=== PATIENT | male | born 1950 | race Two or more races ===

== ENCOUNTER 2017-06-28 19:07 | Inpatient (IN) | payer OTHER, MEDICAID ==
[~2017-06-28] VITALS: Ht 172.7 cm; Wt 64.0 kg
[2017-06-28 20:43] LABS: Basophils # (auto) 0 uL; Basophils % (auto) 0.3 % (0.0-2.0); Eosinophils # (auto) 0 uL; Eosinophils % (auto) 0.1 % (0.0-7.0); Hematocrit 43.4 % (41.0-53.0); Hemoglobin 14.2 g/dL (13.5-17.5); Lymphocytes # (auto) 0.7 uL; Lymphocytes % (auto) 5.4 % (10.0-50.0); Mean Corpuscular Hemoglobin 30.6 pg (28.0-32.0); Mean Corpuscular Hgb Conc. 32.9 g/dL (32.0-36.0); Monocytes # (auto) 0.2 uL; Monocytes % (auto) 1.6 % (0.0-12.0); Neutrophils # (auto) 12.2 uL; Neutrophils % (auto) 92.6 % (37.0-80.0); Nucleated Red Blood Cells % 0.1 %; Platelet Count (auto) 294 10^3/uL (140-450); Red Blood Cells 4.66 10^6/uL (4.5-5.90); Red Cell Distribution Width 13.7 % (11.8-14.3); White Blood Cell 13.2 10^3/uL (4.4-10.8)
[2017-06-28 20:54] LABS: Alanine Aminotransferase 46 U/L (16-61); Anion Gap 10 (5-15); Aspartate Aminotransferase 20 U/L (15-37); BUN/Creatinine Ratio 24.4; Blood Urea Nitrogen 21 mg/dL (7-18); Calcium 8.4 mg/dL (8.5-10.1); Carbon Dioxide 23 mmol/L (21-32); Chloride 106 mmol/L (98-107); GFR African American 114 mL/min; GFR Non-African American 94 mL/min; Glucose 145 mg/dL (74-106); Magnesium 2.1 mg/dL (1.6-2.6); Sodium 139 mmol/L (136-145)
[2017-06-28 20:59] LABS: Alkaline Phosphatase 85 U/L (45-117); Bilirubin, Total 0.2 mg/dL (0.2-1.0)
[2017-06-28 21:26] LABS: Urine WBC None Seen /hpf (0 - 3)
[2017-06-28 21:35] LABS: Urine Bacteria NONE SEEN /hpf (None Seen); Urine Blood Negative /uL (Negative); Urine Mucus FEW (None Seen); Urine Specific Gravity 1.024 (1.001-1.035); Urine Sperm PRESENT /hpf (None Seen)
[2017-06-28] MEDS ORDERED: FUROSEMIDE 20 MG/2 ML VIAL IV ONE (23:00)
[2017-06-28 23:51] LABS: INR 0.88 (0.9-1.15); Prothrombin Time 9.6 sec (9.37-12.3)
[2017-06-29] MEDS ORDERED: MORPHINE SULFATE 4 MG/ML SYR/VIAL IV PRN (04:00)
[2017-06-29] MEDS ORDERED: METOPROLOL TARTRATE 25 MG TAB PO ONE (04:00)
[2017-06-29] MEDS ORDERED: HYDROcodone-ACET 5/325MG TAB PO PRN (04:00)
[2017-06-29] MEDS ORDERED: TEMAZEPAM 15 MG CAP PO PRN (04:00)
[2017-06-29] MEDS ORDERED: ACETAMINOPHEN 325 MG TAB PO PRN (04:00)
[2017-06-29] MEDS ORDERED: cloNIDine HCL 0.1 MG TAB PO PRN (04:00)
[2017-06-29] MEDS ORDERED: NITROGLYCERIN 0.4 MG SL TAB SL PRN (04:00)
[2017-06-29] MEDS ORDERED: ONDANSETRON HCL 4 MG/2 ML VIAL IV PRN (04:00)
[2017-06-29] MEDS: METOPROLOL TARTRATE 25 MG TAB PO SCH ×2 (09:42→22:11)
[2017-06-29] MEDS: GABAPENTIN 100 MG CAP PO SCH ×2 (09:44→22:12)
[2017-06-29] MEDS: ENOXAPARIN SOD 40 MG/0.4 ML SYRINGE SC SCH (09:44)
[2017-06-29] MEDS: FAMOTIDINE 20 MG TAB PO SCH ×2 (09:44→22:11)
[2017-06-29 17:04] VITALS: BP 112/60
[2017-06-29 20:00] VITALS: BP 119/66
[2017-06-29 22:00] VITALS: BP 119/66
[2017-06-30 05:00] VITALS: BP 120/72
[2017-06-30 05:49] LABS: Basophils # (auto) 0.1 uL; Basophils % (auto) 0.8 % (0.0-2.0); Eosinophils # (auto) 0.1 uL; Eosinophils % (auto) 1.4 % (0.0-7.0); Hematocrit 45.2 % (41.0-53.0); Hemoglobin 15.1 g/dL (13.5-17.5); Lymphocytes # (auto) 3.5 uL; Lymphocytes % (auto) 34.6 % (10.0-50.0); Mean Corpuscular Hemoglobin 31.3 pg (28.0-32.0); Mean Corpuscular Hgb Conc. 33.4 g/dL (32.0-36.0); Mean Corpuscular Volume 93.7 fL (80.0-100.0); Monocytes # (auto) 0.5 uL; Monocytes % (auto) 5.3 % (0.0-12.0); Neutrophils # (auto) 5.9 uL; Neutrophils % (auto) 57.9 % (37.0-80.0); Platelet Count (auto) 267 10^3/uL (140-450); Red Blood Cells 4.82 10^6/uL (4.5-5.90); Red Cell Distribution Width 13.6 % (11.8-14.3); White Blood Cell 10.1 10^3/uL (4.4-10.8)
[2017-06-30 06:14] LABS: Albumin 2.9 g/dL (3.4-5.0); BUN/Creatinine Ratio 22.7; Bilirubin, Total 0.4 mg/dL (0.2-1.0); Calcium 8.7 mg/dL (8.5-10.1); Potassium 4.4 mmol/L (3.5-5.1); Total Protein 6.6 g/dL (6.4-8.2)
[2017-06-30 09:00] VITALS: BP 90/59
[2017-06-30] MEDS: METOPROLOL TARTRATE 25 MG TAB PO SCH (10:38)
[2017-06-30] MEDS: ENOXAPARIN SOD 40 MG/0.4 ML SYRINGE SC SCH (10:38)
[2017-06-30] MEDS: GABAPENTIN 100 MG CAP PO SCH (10:39)
[2017-06-30] MEDS: FAMOTIDINE 20 MG TAB PO SCH (10:39)
[2017-06-30] MEDS ORDERED: CLINDAMYCIN HCL 150 MG CAP PO SCH (11:05)
[2017-06-30 11:56] LABS: Folate (Folic Acid) 16.44 ng/mL (5.38-24)
[2017-06-30] MEDS ORDERED: NYSTATIN TOPICAL CREAM 15GM TOP SCH (12:00)
[2017-06-30 13:00] VITALS: BP 124/73
[2017-06-30 15:00] LABS: Alcohol, Urine < 3.0 mg/dL (0-5); Amphetamine Screen, Urine POSITIVE (NEGATIVE); Barbiturate Scree,Urine NEGATIVE (NEGATIVE); Benzodiazephine Screen, Urine NEGATIVE (NEGATIVE); Cannabinoid Screen, Urine POSITIVE (NEGATIVE); Cocaine Screen, Urine NEGATIVE (NEGATIVE); Opiate Scree,Urine NEGATIVE (NEGATIVE); Phencyclidine Screen, Urine NEGATIVE (NEGATIVE)
[2017-06-30] MEDS ORDERED: ASPirin-EC 81 mg tab PO ONE (16:00)
[2017-06-30] MEDS ORDERED: ASP81EC PO (16:02)
[2017-06-30] MEDS ORDERED: NYS15TP TOP (16:02)
[2017-06-30] MEDS ORDERED: CLIN1CAP3 PO (16:02)
[2017-06-30 16:23] VITALS: BP 124/73
[2017-06-30 17:00] VITALS: BP 107/64
[2017-06-30 22:08] VITALS: BP 109/68
[2017-07-01] MEDS ORDERED: ASPirin-EC 81 mg tab PO SCH (10:00)
== END 2017-06-30 21:15 | disposition home or self-care (01) | DRG 300 ==
LOC: ER 19:07 → TELE 19:08 → TELE-WESTW 06-29 17:00
PROVIDERS: ADMIT Nurse Practitioner; ATTEND Internal Medicine
DX: I70.202 Unspecified atherosclerosis of native arteries of extremities, left leg (principal); E44.1 Mild protein-calorie malnutrition; L03.116 Cellulitis of left lower limb; G62.1 Alcoholic polyneuropathy; S91.302A Unspecified open wound, left foot, initial encounter; F10.10 Alcohol abuse, uncomplicated; D72.829 Elevated white blood cell count, unspecified; F15.90 Other stimulant use, unspecified, uncomplicated; K57.30 Diverticulosis of large intestine without perforation or abscess without bleeding; F12.90 Cannabis use, unspecified, uncomplicated; X58.XXXA Exposure to other specified factors, initial encounter; R80.9 Proteinuria, unspecified; G47.00 Insomnia, unspecified; Z68.21 Body mass index [BMI] 21.0-21.9, adult; Y93.89 Activity, other specified; Y92.89 Other specified places as the place of occurrence of the external cause; Y99.8 Other external cause status
CPT/HCPCS: 36415; 71045; 74176; 80053; 80307; 81001; 82607; 82746; 83735; 83880; 84484; 85025; 85379; 85610; 85652; 85730; 86141; 93005; 93306; 93926; 93970; 96372